=== PATIENT | female | born 1945 | race Caucasian/White ===

== ENCOUNTER 2017-08-15 14:25 | Emergency (ER) | payer MEDICARE, OTHER ==
[~2017-08-15] VITALS: Ht 165.1 cm; Wt 75.0 kg
[~2017-08-15 14:25] MED LIST: ASPI-465; GEMF600T; GLIM4TAB55; METF500T4; NAPR250T; SITA100T8; VALS1TAB60
[2017-08-15 14:28] VITALS: Ht 165.1 cm; Wt 75.0 kg
[2017-08-15] MEDS ORDERED: SOD CHLORIDE 0.9% 1,000 ML IV STA (14:41)
[2017-08-15 15:05] LABS: BASOPHILS % 0.3 % (0.0-2.0); EOSINOPHILS # 0.1 10^3/ul (0.0-0.5); EOSINOPHILS % 0.8 % (0.0-7.0); HEMATOCRIT 35.6 % (37.0-47.0); HEMOGLOBIN 11.9 g/dl (12.0-16.0); LYMPHOCYTES # 2.3 10^3/ul (0.8-2.9); LYMPHOCYTES % 29.7 % (15.0-51.0); MEAN CORPUSCULAR HEMOGLOBIN 29.5 pg (29.0-33.0); MEAN CORPUSCULAR HGB CONC 33.4 g/dl (32.0-37.0); MEAN CORPUSCULAR VOLUME 88.1 fl (82.0-101.0); MEAN PLATELET VOLUME 9.3 fl (7.4-10.4); MONOCYTE # 0.5 10^3/ul (0.3-0.9); MONOCYTES % 6.7 % (0.0-11.0); NEUTROPHIL # 4.7 10^3/ul (1.6-7.5); NEUTROPHILS % 62.2 % (39.0-77.0); PLATELET COUNT 173 10^3/UL (140-415); RED BLOOD COUNT 4.04 10^6/ul (4.20-5.40); RED CELL DISTRIBUTION WIDTH 13.3 % (11.5-14.5); WHITE BLOOD COUNT 7.6 10^3/ul (4.8-10.8)
--- NOTE | 2017-08-15 15:23 | RADRPT ---
PROCEDURE: CT Brain without contrast. CLINICAL INDICATION: 71-year-old female with known left arm and left sided facial numbness. TECHNIQUE: A CT of the brain was performed on a [employer] CT scanner [employer] ng a low dose technique with axial imaging from the skull base through the vertex without IV contras t. Multiplanar reformatted images were made. Images were reviewed on a PACS workstation. The CTDI vol is 44 mGy and the DLP is 720.2 mGycm. One or more of the following dose reduction techniques were used: - Automated exposure control. - Adjustment of the mA and/or kV according to patient size. Use of iterative reconstruction technique. COMPARISON: None FINDINGS: The fourth ventricle is normal in size. The third and lateral ventricles are normal in size and con figuration. The brain parenchyma is normal. There is an empty sella. There are vascular calcificatio ns in the cavernous portions of the internal carotid arteries. The visible portions of the globes and extraocular muscles are normal. The paranasal sinuses are cl ear. The mastoid air cells and internal auditory canals are normal. The bony calvarium is intact. IMPRESSION: 1. There are vascular calcifications in the cavernous portions of the internal carotid arteries. 2. Empty sella. 3. Otherwise, negative CT scan of the brain without contrast. 4. Findings were phoned to Dr. Goode at 03:17 p.m.. RPTAT:AAJJ Physician Mike Date Time Electronically viewed and signed by Physician Mike on 08/15/2017 15:23 KELSI/
[2017-08-15 15:25] LABS: ALANINE AMINOTRANSFERASE 28 IU/L (13-69); ALBUMIN 4.4 g/dl (3.3-4.9); ALBUMIN/GLOBULIN RATIO 1.41; ALKALINE PHOSPHATASE 80 IU/L (42-121); ANION GAP 16 (8-16); ASPARTATE AMINO TRANSFERASE 19 IU/L (15-46); BILIRUBIN,INDIRECT 0.3 mg/dl (0-1.1); BILIRUBIN,TOTAL 0.3 mg/dl (0.2-1.3); BLOOD UREA NITROGEN 19 mg/dl (7-20); CARBON DIOXIDE 26 mmol/L (21-31); CHLORIDE 107 mmol/L (97-110); CREATININE 0.82 mg/dl (0.44-1.00); GLUCOSE 203 mg/dl (70-220); POTASSIUM 4.3 mmol/L (3.5-5.1); SODIUM 145 mmol/L (135-144); TOTAL PROTEIN 7.5 g/dl (6.1-8.1)
--- NOTE | 2017-08-15 15:33 | ERD ---
ER Documentation Chief Complaint Chief Complaint Complains of left sided nweakness and numbness HPI 8-year-old woman complains of intermittent paresthesias to the left arm and leg since this morning, she suspects she slept on her left side all last night which may have contributed to her symptoms. She also has left oral facial paresthesias but denies slurred speech, no weakness or difficulty ambulating, no fevers or chills, no headache or blurry vision, no vomiting or diarrhea. Patient denies chest pain or shortness of breath. ROS All systems reviewed and are negative except as per history of present illness. Medications Home Meds Reported Medications Sitagliptin Phos/Metformin HCl (Janumet 50-1,000 mg Tablet) 1 Each Tablet, 1 TAB PO DAILY, #60 08/15/17 Fenofibrate Nanocrystallized* (Fenofibrate*) 145 Mg Tablet, 145 MG PO DAILY, TAB 08/15/17 Ezetimibe (Ezetimibe) 10 Mg Tablet, 10 MG PO QHS, #30 08/15/17 Valsartan* (Diovan*) 160 Mg Tablet, 160 MG PO DAILY, TAB 08/15/17 Simvastatin* (Zocor*) 20 Mg Tablet, 20 MG PO QHS, #30 TAB 08/15/17 Metoprolol Succinate* (Toprol XL*) 25 Mg Tab.sr.24h, 25 MG PO DAILY, #30 08/15/17 Glimepiride* (Glimepiride*) 4 Mg Tablet, 4 MG PO DAILY, TAB 08/15/17 Amlodipine Besylate* (Amlodipine Besylate*) 10 Mg Tablet, 10 MG PO DAILY, #30 TAB 08/15/17 Discontinued Reported Medications Gemfibrozil* (Gemfibrozil*) 600 Mg Tablet, 600 MG PO BID, TAB 08/15/17 Glimepiride* (Amaryl*) 4 Mg Tablet 09/26/09 Metformin* (Glucophage*) 500 Mg Tab 09/26/09 Gemfibrozil* (Lopid*) 600 Mg Tablet 09/26/09 Naproxen* (Naprosyn*) 250 Mg Tablet 09/26/09 Aspirin (Adult Low Dose Aspirin) 81 Mg Tablet. 09/26/09 Valsartan-Hydrochlorothiazide (Diovan HCT) 1 Tab Tablet 09/26/09 Sitagliptin* (Januvia*) 100 Mg Tablet 09/26/09 Allergies Allergies: Coded Allergies: No Known Allergy (Verified Allergy, Unknown, 12/20/06) PMhx/Soc Dyslipidemia, hypertension, diabetes mellitus History of Surgery: Yes (CYST REMOVAL ON LT BREAST 1990) Hx Neurological Disorder: No Hx Respiratory Disorders: No Hx Cardiac Disorders: Yes (HTN/HYPERLIPIDEMIA) Hx Psychiatric Problems: No Hx Miscellaneous Medical Probl: Yes (DM) Hx Alcohol Use: No Hx Substance Use: No Hx Tobacco Use: No Smoking Status: Never smoker FmHx Family History: No diabetes Physical Exam Vitals Vital Signs Date Time Temp Pulse Resp B/P Pulse Ox O2 Delivery O2 Flow Rate FiO2 08/15/17 16:35 99.0 73 16 125/99 100 Room Air 08/15/17 14:40 99.0 69 20 139/61 100 Room Air 08/15/17 14:28 99.3 74 20 161/87 99 Physical Exam GENERAL: Well-developed, well-nourished, well-hydrated, in no apparent distress , looks nontoxic in appearance HEENT: Moist mucous membranes, pink conjunctiva, no cervical spine tenderness or step-off deformities, no goiter, no jaundice or icterus, extraocular movements intact without pain. No submandibular induration, and no pharyngeal erythema NEURO: Alert and oriented 3, cranial nerves II through XII intact bilaterally, pupils equal round reactive to light, no focal deficits or facial asymmetry, sensation intact distally Strength 5/5 in upper and lower extremities bilaterally. No pronator drift, no aphasia, no dysarthria CARDIAC: Regular rate and rhythm, no murmurs rubs or gallops LUNGS: Clear bilaterally no wheezing crackles or stridor ABDOMEN: Soft nontender, no guarding, no rigidity, no rebound, no psoas sign no obturator sign. Normoactive bowel sounds SKIN: Warm and dry to touch, no abrasions, contusions, or hematomas, no lacerations, no ecchymosis, no target lesions, and without ulcers EXTREMITIES: No clubbing cyanosis or edema, calves are bilaterally symmetrical, no Homans sign, no popliteal cord sign. Distal pulses equal and bilateral PSYCH: Normal affect without agitation or irritability Result Diagram: 08/15/17 1454 08/15/17 1454 Results 24 hrs Laboratory Tests Test 08/15/17 14:54 08/15/17 16:00 White Blood Count 7.610^3/ul Red Blood Count 4.0410^6/ul Hemoglobin 11.9g/dl Hematocrit 35.6% Mean Corpuscular Volume 88.1fl Mean Corpuscular Hemoglobin 29.5pg Mean Corpuscular Hemoglobin Concent 33.4g/dl Red Cell Distribution Width 13.3% Platelet Count 23763^3/UL Mean Platelet Volume 9.3fl Neutrophils % 62.2% Lymphocytes % 29.7% Monocytes % 6.7% Eosinophils % 0.8% Basophils % 0.3% Nucleated Red Blood Cells % 0.0/100WBC Neutrophils # 4.710^3/ul Lymphocytes # 2.310^3/ul Monocytes # 0.510^3/ul Eosinophils # 0.110^3/ul Basophils # 0.010^3/ul Nucleated Red Blood Cells # 0.010^3/ul Sodium Level 145mmol/L Potassium Level 4.3mmol/L Chloride Level 107mmol/L Carbon Dioxide Level 26mmol/L Anion Gap 16 Blood Urea Nitrogen 19mg/dl Creatinine 0.82mg/dl Glucose Level 203mg/dl Calcium Level 9.0mg/dl Total Bilirubin 0.3mg/dl Direct Bilirubin 0.00mg/dl Indirect Bilirubin 0.3mg/dl Aspartate Amino Transf (AST/SGOT) 19IU/L Alanine Aminotransferase (ALT/SGPT) 28IU/L Alkaline Phosphatase 80IU/L Troponin I < 0.012ng/ml Total Protein 7.5g/dl Albumin 4.4g/dl Globulin 3.10g/dl Albumin/Globulin Ratio 1.41 Lipase 97U/L Urine Color STRAW Urine Clarity CLEAR Urine pH 6.0 Urine Specific [place] 1.006 Urine Ketones NEGATIVEmg/dL Urine Nitrite NEGATIVEmg/dL Urine Bilirubin NEGATIVEmg/dL Urine Urobilinogen NEGATIVEmg/dL Urine Leukocyte Esterase NEGATIVELeu/ul Urine Hemoglobin NEGATIVEmg/dL Urine Glucose NEGATIVEmg/dL Urine Total Protein NEGATIVEmg/dl Current Medications Medications (Trade) Dose Ordered Sig/Zelda Route PRN Reason Start Time Stop Time Status Last Admin Dose Admin Sodium Chloride (NS) 1,000 ml @ 1,000 mls/hr Q1H STAT IV 08/15/17 14:41 08/15/17 15:40 DC 08/15/17 15:08 Procedures/MDM IV line was established patient was placed on cardiac cath technologist rhythm strip revealed a sinus rhythm at about 70 bpm with upright P and T waves. Patient was afebrile EKG performed, read by me: 68 bpm, normal sinus rhythm, normal axis, no acute ST segment changes, narrow QRS complex, with good R-wave progression in precordial leads. CT brain was negative for acute bleed mass or shift. Patient received 1 L normal saline intravenously. CBC and electrolytes are normal, liver function tests were normal, troponin was negative, urine analysis negative for infection. I repeated the patient's neurologic exam and remains normal, she has no focal deficits or debility on examination, she is ready to go and will follow up with her PMD and neurologist. Differential diagnoses considered, included but not limited to acute coronary syndrome, pulmonary embolism, aortic dissection, abdominal aortic aneurysm, sepsis, stroke, meningitis, encephalitis, pneumonia, appendicitis, cholecystitis , bowel obstruction, pyelonephritis, nephrolithiasis, cystitis, as well as metabolic, hematologic, and electrolyte abnormalities. As well as abscess, cellulitis, fractures, and dislocations. Patient feels much better at this time, and vital signs are normal, symptoms have improved. I did give strict instructions to return to the ED if symptoms continue or worsen, patient will otherwise follow-up with primary care physician. Patient understood instructions and agreed to plan. Disclaimer: Inadvertent spelling and grammatical errors are likely due to EHR/ dictation software use and do not reflect on the overall quality of patient care. Also, please note that the electronic time recorded on this note does not necessarily reflect the actual time of the patient encounter. Departure Diagnosis: Primary Impression: Paresthesias Condition: Good FORD VILLARREAL MD Aug 15, 2017 15:33
[2017-08-15 15:49] LABS: TROPONIN-I < 0.012 ng/ml (0.00-0.12)
[2017-08-15 16:35] VITALS: BP 125/99; PULSE 73; RESP 16; TEMP 99
[2017-08-15 16:45] LABS: ADD UMIC NO; UR ASCORBIC ACID NEGATIVE (NEGATIVE); UR BILIRUBIN (Dip) NEGATIVE (NEGATIVE); UR BLOOD (Dip) NEGATIVE (NEGATIVE); UR CLARITY CLEAR (CLEAR); UR COLOR STRAW (YELLOW); UR GLUCOSE (Dip) NEGATIVE (NEGATIVE); UR KETONES (Dip) NEGATIVE (NEGATIVE); UR LEUKOCYTE ESTERASE (Dip) NEGATIVE Leu/ul (NEGATIVE); UR NITRITE (Dip) NEGATIVE (NEGATIVE); UR SPECIFIC GRAVITY (Dip) 1.006 (1.003-1.030); UR TOTAL PROTEIN (Dip) NEGATIVE (NEGATIVE); UR UROBILINOGEN (Dip) NEGATIVE (NEGATIVE)
[2017-08-15] MEDS ORDERED: AMLO-147 PO (17:57)
[2017-08-15] MEDS ORDERED: GEMF600T60 PO (17:58)
[2017-08-15] MEDS ORDERED: GLIM4TAB PO (17:59)
[2017-08-15] MEDS ORDERED: METO-335 PO (18:00)
[2017-08-15] MEDS ORDERED: VALS160T20 PO (18:03)
[2017-08-15] MEDS ORDERED: SIMV20TA PO (18:03)
[2017-08-15] MEDS ORDERED: FENO145T19 PO (18:06)
[2017-08-15] MEDS ORDERED: EZET10TA32 PO (18:06)
[2017-08-15] MEDS ORDERED: SITA1TAB5 PO (18:07)
== END 2017-08-15 17:19 | disposition home or self-care (01) ==
LOC: E/R 14:25
DX: R20.2 Paresthesia of skin (principal); I10 Essential (primary) hypertension; E11.9 Type 2 diabetes mellitus without complications; Z79.84 Long term (current) use of oral hypoglycemic drugs
CPT/HCPCS: 36415; 70450; 80053; 81003; 83690; 84484; 85025; 93005; 99285; J7030